=== PATIENT | male | born 1965 | race Two or more races ===

== ENCOUNTER 2024-04-26 15:33 | Inpatient (IN) | payer MEDICARE, MEDICAID ==
[2024-04-26] VITALS (9 sets, daily range): BP systolic 137–197; BP diastolic 67–99; PULSE 68–73; RESP 14–19; TEMP 97.6
[~2024-04-26] VITALS: Ht 165.1 cm; Wt 74.6 kg
[2024-04-26] MEDS: ATROPINE SULFATE 0.1 MG/ML 10 ML SYRINGE IVP ONE (15:30)
[2024-04-26] MEDS: ONDANSETRON HCL 4 MG/2 ML VIAL IVP ONE (15:30)
[2024-04-26] MEDS: MORPHINE SULFATE 4 MG/ML SYRINGE IVP ONE (15:30)
[2024-04-26] MEDS: CALCIUM GLUCONATE 100 MG/ML 10 ML IVP ONE (15:30)
[2024-04-26] MEDS ORDERED: 0.9% SODIUM CHLORIDE 10 ML SYRINGE IVP PRN (15:45)
[2024-04-26 16:01] LABS: ABG BASE EXCESS -2.7 mmol/L (-2.0-3.0); ABG CARBOXYHEMOGLOBIN 0.4 % (0.0-1.5); ABG HCO3 22.1 mmol/L (22.0-26.0); ABG METHEMOGLOBIN 0.7 % (0.0-1.5); ABG OXYGEN CONTENT 14.4 mL/dL (15.0-23.0); ABG PCO2 46 mmHg (35-45); ABG PH 7.323 (7.35-7.450); ABG TOTAL HEMOGLOBIN 10.8 G/dL (12.0-18.0); PO2, ARTERIAL BG 86.2 mmHg (84.0-92.0); SOURCE, BLOOD GAS ARTERIAL
[2024-04-26 16:03] LABS: ALLEN TEST, BLOOD GAS POS; O2 DEVICE,BLOOD GAS NON-REB (ROOM AIR); SITE, BLOOD GAS LFT BRACHIAL
[2024-04-26 16:04] LABS: BASOPHILS % (AUTO) 0.5 % (0.0-2.0); EOSINOPHILS % (AUTO) 2.5 % (1.0-6.0); HEMATOCRIT 29.8 % (41-53); LYMPHOCYTES # (AUTO) 1.4 K/uL (1.0-4.8); LYMPHOCYTES % (AUTO) 23.8 % (22.0-44.0); MEAN CORPUSCULAR HEMOGLOBIN 33.8 pg (26.0-34.0); MEAN CORPUSCULAR HGB CONC 33.5 G/dL (31.0-37.0); MEAN CORPUSCULAR VOLUME 101 fL (80-100); MONOCYTES # (AUTO) 0.6 K/uL (0.1-1.0); MONOCYTES % (AUTO) 10.4 % (2.0-9.0); NEUTROPHILS # (AUTO) 3.8 K/uL (1.8-7.7); NEUTROPHILS % (AUTO) 62.8 % (40.0-70.0); PLATELET COUNT (AUTO) 157 K/uL (150-450); RED BLOOD CELL COUNT(AUTO) 2.95 MIL/uL (4.50-5.90); WHITE BLOOD COUNT (AUTO) 6.1 K/uL (4.5-11.0)
[2024-04-26 16:12] LABS: ALCOHOL, BLOOD (SERUM) < 3 mg/dL (0-10); CARBON DIOXIDE 27 mmol/L (22-29); POTASSIUM 7.4 mmol/L (3.5-5.1); SODIUM SERUM 132 mmol/L (136-145); UREA NITROGEN, BLOOD 83 mg/dL (7-18)
[2024-04-26 16:13] LABS: CREATININE 8.81 mg/dL (0.60-1.30); GLOMERULAR FILTR. RATE CALC 6 mL/min (>60)
[2024-04-26 16:16] LABS: PROTHROMBIN TIME 10.7 SEC (9.4-11.6)
[2024-04-26 16:17] LABS: AMMONIA 19 umol/L (11-32); B-TYPE NATRIURETIC PEPTIDE 385 pg/mL (0-100); TROPONIN I-HIGH SENSITIVITY 26 ng/L (<76)
[2024-04-26 16:20] LABS: LACTIC ACID 2.6 mmol/L (0.4-2.0)
[2024-04-26 16:26] LABS: ALANINE AMINOTRANSFERASE 135 U/L (12-78); ALBUMIN 2.5 g/dL (3.4-5.0); ALKALINE PHOSPHATASE 106 U/L (46-116); ANION GAP 9 mmol/L (8-16); ASPARTATE AMINOTRANSFERASE 122 U/L (15-37); BILIRUBIN,TOTAL 0.4 mg/dL (0.1-1.0); CALCIUM, TOTAL 8.4 mg/dL (8.8-10.5); CHLORIDE 96 mmol/L (98-107); LIPASE 106 U/L (16-77)
[2024-04-26 16:27] LABS: GLUCOSE,RANDOM 535 mg/dL (70-110)
[2024-04-26] MEDS ORDERED: DEXTROSE 50%-WATER 25 GM/50 ML SYRINGE IVP PRN (16:30)
[2024-04-26] MEDS ORDERED: ACETAMINOPHEN 325 MG TABLET PO PRN (16:30)
[2024-04-26] MEDS ORDERED: BISACODYL 10 MG RECTAL RECTAL SUPPOSITORY PR PRN (16:30)
[2024-04-26] MEDS: SODIUM POLYSTYRENE SULFONATE 15 GM/60 ML SUSPENSION BOTTLE PR ONE (16:45)
[2024-04-26 17:10] LABS: CALCIUM, TOTAL 10.1 mg/dL (8.8-10.5); CREATININE 8.98 mg/dL (0.60-1.30)
[2024-04-26 17:11] LABS: POTASSIUM 6.4 mmol/L (3.5-5.1)
[2024-04-26] MEDS ORDERED: CARV25TA32 PO (17:27)
[2024-04-26] MEDS ORDERED: GABA-529 PO (17:27)
[2024-04-26] MEDS ORDERED: LOSA100T59 PO (17:27)
[2024-04-26] MEDS ORDERED: ISOS30TA68 PO (17:27)
[2024-04-26] MEDS ORDERED: ESCI5TAB16 PO (17:27)
[2024-04-26] MEDS ORDERED: HYDR-5174 PO (17:27)
[2024-04-26] MEDS ORDERED: OMEP20CA12 PO (17:27)
[2024-04-26] MEDS ORDERED: ATOR20TA65 PO (17:27)
[2024-04-26] MEDS: CALCIUM CHLORIDE 100 MG/ML 10 ML SYRINGE IVP ONE (17:31)
[2024-04-26] MEDS: SODIUM BICARBONATE [ADULT] 8.4% 50 MEQ/50 ML SYRINGE IVP ONE ×2 (17:31→17:33)
[2024-04-26] MEDS: INSULIN REGULAR, HUMAN 100 UNITS/ML IVP ONE (17:32)
[2024-04-26] MEDS: CALCIUM CHLORIDE IVP ONE (17:33)
[2024-04-26 18:20] LABS: COVID AG,FIA SOURCE NASAL SWAB
[2024-04-26 18:25] LABS: APPEARANCE,URINE CLEAR (CLEAR); BILIRUBIN,URINE NEGATIVE (NEGATIVE); COLOR,URINE LIGHT YELLOW (YELLOW); GLUCOSE, URINE (UA) >=1000 mg/dL (NEGATIVE); KETONES,URINE NEGATIVE (NEGATIVE); LEUKOCYTE ESTERASE ,URINE NEGATIVE (NEGATIVE); NITRATE,URINE NEGATIVE (NEGATIVE); OCCULT BLOOD,URINE TRACE (NEGATIVE); PROTEIN,URINE 300-600,SEE CONFIRM mg/dL (NEGATIVE); UROBILINOGEN,URINE <=1.0 mg/dL (<=1.0)
[2024-04-26 18:39] LABS: SARS-COV2 (COVID) ANTIGEN,FIA Negative (Negative)
[2024-04-26 18:47] LABS: SULFOSALICYLIC ACID,URINE 2+ (Negative)
[2024-04-26 18:48] LABS: BACTERIA,URINE Rare /HPF (None Seen); SQUAMOUS EPITHELIAL CELL,UR Rare /LPF (None Seen)
[2024-04-26 19:50] LABS: TROPONIN I-HIGH SENSITIVITY 36 ng/L (<76)
[2024-04-26] MEDS: CHLORHEXIDINE GLUCONATE 2% TOWELETTE [2'S/6'S] TP SCH (21:08)
[2024-04-26] MEDS: HEPARIN SODIUM,PORCINE 5,000 UNITS/ML VIAL SQ SCH (23:35)
[2024-04-27] VITALS (8 sets, daily range): BP systolic 146–181; BP diastolic 65–87; PULSE 61–76; RESP 18–19; TEMP 97.4–98.4
[2024-04-27] MEDS: INSULIN LISPRO 100 UNITS/ML SQ PRN (06:24)
[2024-04-27 06:36] LABS: GLUCOMETER DEV NAME(LOC) 5S.1B; GLUCOSE,POINT OF CARE 263 MG/DL (70-110)
[2024-04-27] MEDS ORDERED: LIDOCAINE/PF 1% 2 ML VIAL IM ONE (07:35)
[2024-04-27] MEDS: FAMOTIDINE 20 MG TABLET PO SCH (08:39)
[2024-04-27 12:36] LABS: GLUCOMETER DEV NAME(LOC) 5N.2C; GLUCOSE,POINT OF CARE 277 MG/DL (70-110)
[2024-04-27] MEDS: CARVEDILOL 25 MG TABLET PO SCH (14:00)
[2024-04-27] MEDS: ESCITALOPRAM OXALATE 10 MG TABLET PO SCH (14:00)
[2024-04-27] MEDS: ATORVASTATIN CALCIUM 20 MG TABLET PO SCH (14:01)
[2024-04-27] MEDS: GABAPENTIN 100 MG CAPSULE PO SCH (14:01)
[2024-04-27 17:05] LABS: GLUCOMETER DEV NAME(LOC) 5N.2C; GLUCOSE,POINT OF CARE 211 MG/DL (70-110)
[2024-04-27] MEDS: PrednisoLONE ACETATE 1% 5 ML OPHTHALMIC SUSPENSION OS SCH (20:45)
[2024-04-27] MEDS: BRINZOLAMIDE 1% 10 ML OPHTHALMIC SUSPENSION OS SCH (20:48)
[2024-04-27] MEDS: BRIMONIDINE TARTRATE 0.2% 5 ML OPHTHALMIC SOLUTION OS SCH (20:51)
[2024-04-27] MEDS: TIMOLOL MALEATE 0.5% 5 ML OPHTHALMIC SOLUTION OS SCH (20:52)
[2024-04-28 04:54] VITALS: BP 163/75; PULSE 61; RESP 18; TEMP 97.7
[2024-04-28 07:36] LABS: GLUCOMETER DEV NAME(LOC) 5N.2C; GLUCOSE,POINT OF CARE 280 MG/DL (70-110)
[2024-04-28 07:36] LABS: GLUCOMETER DEV NAME(LOC) 5N.2C; GLUCOSE,POINT OF CARE 194 MG/DL (70-110)
[2024-04-28 08:00] VITALS: BP 141/57; PULSE 64; RESP 18; TEMP 97.7
[2024-04-28] MEDS ORDERED: AMLO5TAB66 PO (11:22)
[2024-04-28 12:00] VITALS: BP 140/76; PULSE 62; RESP 18; TEMP 97.8
[2024-04-28 12:26] LABS: GLUCOMETER DEV NAME(LOC) 5S.1B; GLUCOSE,POINT OF CARE 383 MG/DL (70-110)
[2024-04-28] MEDS: HYDROCODONE/ACETAMINOPHEN 5-325 MG TABLET PO PRN (13:05)
[2024-04-28 16:00] VITALS: BP 146/75; PULSE 61; RESP 18; TEMP 97.7
== END 2024-04-28 19:05 | disposition home or self-care (01) | DRG 637 ==
LOC: EMS 15:33 → EDH 16:30 → 5S 04-27 01:08
PROVIDERS: ADMIT Internal Medicine; ATTEND Internal Medicine
PROC: 5A1D70Z Performance of Urinary Filtration, Intermittent, Less than 6 Hours Per Day (ICD-10-PCS; principal; 2024-04-26)
DX: E11.65 Type 2 diabetes mellitus with hyperglycemia (principal); G93.41 Metabolic encephalopathy; N18.6 End stage renal disease; I12.0 Hypertensive chronic kidney disease with stage 5 chronic kidney disease or end stage renal disease; E87.5 Hyperkalemia; Z20.822 Contact with and (suspected) exposure to COVID-19; K21.9 Gastro-esophageal reflux disease without esophagitis; R00.1 Bradycardia, unspecified; T68.XXXA Hypothermia, initial encounter; E78.00 Pure hypercholesterolemia, unspecified; E11.319 Type 2 diabetes mellitus with unspecified diabetic retinopathy without macular edema; E11.22 Type 2 diabetes mellitus with diabetic chronic kidney disease; E11.51 Type 2 diabetes mellitus with diabetic peripheral angiopathy without gangrene; D63.1 Anemia in chronic kidney disease; Z99.2 Dependence on renal dialysis; Z91.118 Patient's noncompliance with dietary regimen for other reason; Z86.73 Personal history of transient ischemic attack (TIA), and cerebral infarction without residual deficits; Z79.4 Long term (current) use of insulin; Z79.899 Other long term (current) drug therapy
CPT/HCPCS: 36600; 70450; 71045; 80048; 80076; 81001; 81002; 82140; 82805; 82962; 83605; 83690; 83735; 83880; 84132; 84145; 84484; 85025; 85610; 87040; 87340; 90935; 93005; 99291; G0480; J1644; J1815; J3490; 36415-L1; 36415-TC

== ENCOUNTER 2024-05-24 13:52 | Inpatient (IN) | payer MEDICARE, MEDICAID ==
[~2024-05-24] VITALS: Ht 170.2 cm; Wt 75.0 kg
[2024-05-24] VITALS (9 sets, daily range): BP systolic 99–178; BP diastolic 45–91; PULSE 46–82; RESP 14–23; TEMP 97.4–98.4
[~2024-05-24 13:52] MED LIST: AMLO5TAB66 PO; ATOR20TA65 PO; CARV25TA32 PO; ESCI5TAB16 PO; GABA-529 PO; HYDR-5174 PO; ISOS30TA68 PO; OMEP20CA12 PO
[2024-05-24] MEDS: DEXTROSE 50%-WATER 25 GM/50 ML SYRINGE IVP ONE ×2 (14:06→15:53)
[2024-05-24] MEDS: SODIUM BICARBONATE [ADULT] 8.4% 50 MEQ/50 ML SYRINGE IVP ONE (14:06)
[2024-05-24] MEDS: CALCIUM GLUCONATE 0.465 MEQ/ML 10 ML VIAL IVP ONE (14:06)
[2024-05-24] MEDS: INSULIN REGULAR, HUMAN 100 UNITS/ML IVP ONE ×2 (14:07→15:52)
[2024-05-24 14:18] LABS: BASOPHILS % (AUTO) 0.6 % (0.0-2.0); EOSINOPHILS % (AUTO) 2.6 % (1.0-6.0); HEMOGLOBIN 10.5 g/dL (13.5-17.5); LYMPHOCYTES # (AUTO) 1.6 K/uL (1.0-4.8); LYMPHOCYTES % (AUTO) 26.3 % (22.0-44.0); MEAN CORPUSCULAR HEMOGLOBIN 32.5 pg (26.0-34.0); MEAN CORPUSCULAR HGB CONC 32.7 G/dL (31.0-37.0); MEAN CORPUSCULAR VOLUME 99 fL (80-100); MONOCYTES # (AUTO) 0.6 K/uL (0.1-1.0); MONOCYTES % (AUTO) 9.4 % (2.0-9.0); NEUTROPHILS # (AUTO) 3.8 K/uL (1.8-7.7); NEUTROPHILS % (AUTO) 61.1 % (40.0-70.0); PLATELET COUNT (AUTO) 195 K/uL (150-450); RED BLOOD CELL COUNT(AUTO) 3.22 MIL/uL (4.50-5.90); RED CELL DISTRIBUTION WIDTH 14.1 % (11.5-14.5); WHITE BLOOD COUNT (AUTO) 6.2 K/uL (4.5-11.0)
[2024-05-24 14:32] LABS: PROTHROMBIN TIME 10.4 SEC (9.4-11.6)
[2024-05-24 14:48] LABS: ALBUMIN 2.8 g/dL (3.4-5.0); CALCIUM, TOTAL 9.8 mg/dL (8.8-10.5); CREATININE 9.19 mg/dL (0.60-1.30)
[2024-05-24 14:50] LABS: POTASSIUM 6.5 mmol/L (3.5-5.1)
[2024-05-24 15:00] LABS: BILIRUBIN,TOTAL 6.5 mg/dL (0.1-1.0)
[2024-05-24 15:01] LABS: TOTAL PROTEIN, SERUM 6.5 g/dL (6.4-8.2)
[2024-05-24] MEDS: ONDANSETRON HCL 4 MG/2 ML VIAL IVP ONE (15:05)
[2024-05-24] MEDS: CALCIUM CHLORIDE 100 MG/ML 10 ML SYRINGE IVP ONE (15:05)
[2024-05-24 15:19] LABS: TROPONIN I-HIGH SENSITIVITY 22 ng/L (<76)
[2024-05-24 15:31] LABS: GLUCOMETER DEV NAME(LOC) ERT.5; GLUCOSE,POINT OF CARE 176 MG/DL (70-110)
[2024-05-24] MEDS: SODIUM CHLORIDE 0.9% 1,000 ML IV ONE ×2 (15:53→18:56)
[2024-05-24] MEDS ORDERED: ATROPINE SULFATE 0.1 MG/ML 10 ML SYRINGE IVP ONE (18:18)
[2024-05-24] MEDS: DOPamine 400MG/D5W[STANDARD] 250 ML IV PRN (18:29)
[2024-05-24] MEDS: CALCIUM GLUCONATE 100 MG/ML 10 ML IVP ONE (18:56)
[2024-05-24] MEDS: ALBUMIN HUMAN 25%-25GM/100ML 100 ML IV ONE (18:59)
[2024-05-24] MEDS ORDERED: ZOLPIDEM TARTRATE 5 MG TABLET PO PRN (19:45)
[2024-05-24] MEDS ORDERED: BISACODYL 10 MG RECTAL RECTAL SUPPOSITORY PR PRN (19:45)
[2024-05-24] MEDS ORDERED: ONDANSETRON HCL 4 MG/2 ML VIAL IVP PRN (19:45)
[2024-05-24] MEDS ORDERED: IPRATROPIUM BROMIDE 0.5 MG/2.5 ML NEB SOLUTION NEB PRN (19:45)
[2024-05-24] MEDS ORDERED: MORPHINE SULFATE 2 MG/ML SYRINGE IVP PRN (19:45)
[2024-05-24] MEDS ORDERED: ACETAMINOPHEN 325 MG TABLET PO PRN (19:45)
[2024-05-24] MEDS ORDERED: HYDROCODONE/ACETAMINOPHEN 5-325 MG TABLET PO PRN (19:45)
[2024-05-24] MEDS ORDERED: ALBUTEROL SULFATE 2.5 MG/0.5 ML NEB SOLUTION NEB PRN (19:45)
[2024-05-24] MEDS ORDERED: MAGNESIUM HYDROXIDE SUSPENSION 30 ML UDCUP PO PRN (19:45)
[2024-05-24 20:07] LABS: TROPONIN I-HIGH SENSITIVITY 31 ng/L (<76)
[2024-05-24 20:15] LABS: LACTIC ACID 0.6 mmol/L (0.4-2.0)
[2024-05-24] MEDS: AmLODIPine BESYLATE 5 MG TABLET PO SCH (21:45)
[2024-05-24 22:21] LABS: CALCIUM, TOTAL 8.8 mg/dL (8.8-10.5); CREATININE 3.57 mg/dL (0.60-1.30); POTASSIUM 3.5 mmol/L (3.5-5.1)
[2024-05-25] VITALS (16 sets, daily range): BP systolic 133–172; BP diastolic 44–86; PULSE 62–79; RESP 13–19; TEMP 97.8–98.8
[2024-05-25] MEDS: HEPARIN SODIUM,PORCINE 5,000 UNITS/ML VIAL SQ SCH (00:32)
[2024-05-25] MEDS: HydrALAZINE HCL 20 MG/ML VIAL IVP PRN (00:32)
[2024-05-25 05:46] LABS: CALCIUM, TOTAL 8.9 mg/dL (8.8-10.5); CREATININE 5.82 mg/dL (0.60-1.30); PHOSPHORUS 5.4 mg/dL (2.5-4.9); POTASSIUM 4.6 mmol/L (3.5-5.1)
[2024-05-25 07:01] LABS: GLUCOMETER DEV NAME(LOC) ICU.S6; GLUCOSE,POINT OF CARE 169 MG/DL (70-110)
[2024-05-25] MEDS: PANTOPRAZOLE SODIUM 40 MG DR TABLET PO SCH (08:50)
[2024-05-25] MEDS ORDERED: SODIUM CHLORIDE 0.9% 2,000 ML ONE (10:17)
[2024-05-25] MEDS ORDERED: LIDOCAINE/PF 1% 2 ML VIAL IM ONE (12:00)
[2024-05-25 14:46] LABS: GLUCOMETER DEV NAME(LOC) ERT.5; GLUCOSE,POINT OF CARE 169 MG/DL (70-110)
[2024-05-25] MEDS ORDERED: METOPROLOL TARTRATE 5 MG/5 ML VIAL IVP PRN (18:15)
[2024-05-25] MEDS: FOLIC ACID/VIT B COMPLEX AND C TABLET PO SCH (19:28)
[2024-05-26 00:31] VITALS: BP 134/52; PULSE 66; RESP 17; TEMP 98.3
[2024-05-26 04:57] VITALS: BP 149/69; PULSE 65; RESP 19; TEMP 98.3
[2024-05-26 09:03] VITALS: BP 142/68; PULSE 63; RESP 18; TEMP 98
[2024-05-26 10:54] VITALS: BP 131/60; PULSE 65; RESP 19; TEMP 98.2
== END 2024-05-26 12:00 | disposition home or self-care (01) | DRG 682 ==
LOC: EMS 13:52 → EDH 20:05 → ICU 22:25 → 5S 05-25 21:39
PROVIDERS: ADMIT Hospitalist; ATTEND Hospitalist
PROC: 5A1D70Z Performance of Urinary Filtration, Intermittent, Less than 6 Hours Per Day (ICD-10-PCS; principal; 2024-05-24)
PROC: 5A1D70Z Performance of Urinary Filtration, Intermittent, Less than 6 Hours Per Day (ICD-10-PCS; 2024-05-25)
DX: I12.0 Hypertensive chronic kidney disease with stage 5 chronic kidney disease or end stage renal disease (principal); N18.6 End stage renal disease; E87.5 Hyperkalemia; I95.9 Hypotension, unspecified; R00.1 Bradycardia, unspecified; E11.22 Type 2 diabetes mellitus with diabetic chronic kidney disease; K21.9 Gastro-esophageal reflux disease without esophagitis; E78.00 Pure hypercholesterolemia, unspecified; Z99.2 Dependence on renal dialysis; Z79.899 Other long term (current) drug therapy
CPT/HCPCS: 71045; 80048; 80053; 82962; 83605; 83735; 83880; 84100; 84484; 85025; 85610; 85730; 87081; 87340; 87481; 90935; 93005; 93306; 99285; G0378; J0360; J0461; J0610; J1265; J1644; J1815; J2405; J3490; J7030; P9046; 36415-L1; 36415-TC